=== PATIENT | male | born 1950 | race Caucasian/White ===

== ENCOUNTER 2020-05-16 07:05 | Day surgery (SDC) | payer MEDICARE ==
[~2020-05-16] VITALS: Ht 188 cm; Wt 111.6 kg
[~2020-05-16 07:05] MED LIST: LISINOPRIL-HCT1 EACH PO; NORVASC5 MG PO; ZOCOR40 MG PO
--- NOTE | 2020-05-16 08:35 | NUR ---
05/16/20 0835 Lianna,Adalgisa 8205 PT ARRIVED TO PACU ON 2L VIA MASK, PT DENIES PAIN AND NAUSEA. PT REORIENTED TO PACU. VSS. PT DROWSY.
--- NOTE | 2020-05-17 07:58 | OR ---
[facility] [address], [place] [address] Signed DATE OF OPERATION: 05/16/2020 SURGEON: Masoud Whitt MD PREOPERATIVE DIAGNOSIS: Screening. POSTOPERATIVE DIAGNOSES: 1. Moderate pandiverticulosis. 2. Circumferential moderate external hemorrhoids. PROCEDURE: Colonoscopy without biopsy. ESTIMATED BLOOD LOSS: None. INDICATIONS: Meek is a 69-year-old gentleman, asked to see me for a followup colonoscopy. He has moved up from [place] to be closer to his daughter and grandchildren. He had a negative sigmoidoscopy back in 2007, while living in [place]. He currently has no lower GI complaints. No family history of colon cancer or polyps. I had met with Meek in the office and I gave him a pamphlet on colonoscopy. We discussed the difference between his colonoscopy and the sigmoidoscopy. We also reviewed the written instructions for the bowel prep line by line. He understands endoscopy quite well. He understands there is risk including, but not limited to gas bloating, crampy abdominal pain, bleeding, perforation requiring surgery, and missed diagnosis. He also understands the need to have someone taking home afterwards due to this IV sedation. He had expressed understanding and wished to proceed. PROCEDURE NOTE: Meek was taken into our endoscopy suite and placed in the left lateral decubitus position. He was given a total of 7 mg of Versed and 150 mcg of fentanyl to cover the case. A digital rectal exam was performed and he does have moderate circumferential external hemorrhoids. He had good sphincter tone. Prostate is indurated, consistent with his age. The adult colonoscope was then introduced and advanced under direct visualization of the camera without difficulty. It took some extra sedation and abdominal compression in order to advance the scope down into the cecum. His prep was good. The scope was slowly withdrawn. We took pictures throughout for photodocumentation. We could easily see the appendiceal orifice and the ileocecal Electronically Signed By: MASOUD WHITT MD 05/17/20 [facility]8 PATIENT NAME: MEEK CAMEJO OPERATIVE REPORT DATE OF : 50 REPORT #: [id number] PHYSICIAN: MASOUD WHITT MD PCP: ISRAEL MORELOS MD REPORT IS CONFIDENTIAL AND NOT TO BE RELEASED WITHOUT AUTHORIZATION [facility] [address], [place] [address] Signed valve. We found that he does have pandiverticulosis. They were moderate in size, moderate in number, and scattered throughout the entire colon. The rectum was unremarkable. Upon retroflexion of the scope, we did not see any additional pathology. After this, the gas was suctioned out, colonoscope removed. Meek tolerated the procedure quite well. RECOMMENDATIONS: Meek can follow up in 10 years for repeat colonoscopy. Masoud Whitt MD ALB/KYRAL /[id number] cc: Masoud Whitt MD Chart Filed Incomplete Dr. Israel Morelos Copies: MASOUD WHITT MD CHART FILED INCOMPLETE ~ Electronically Signed By: MASOUD WHITT MD 05/17/20 0758 PATIENT NAME: FLOYDYovanaMEEK GLASS OPERATIVE REPORT DATE OF : 50 REPORT #: [id number] PHYSICIAN: MASOUD WHITT MD PCP: ISRAEL MORELOS MD REPORT IS CONFIDENTIAL AND NOT TO BE RELEASED WITHOUT AUTHORIZATION
== END 2020-05-16 09:05 | disposition home or self-care (01) ==
LOC: DS 07:05 → OPS 07:05 → DS 08:15 → OPS 08:15
PROVIDERS: Colon & Rectal Surgery
PROC: 0DJD8ZZ Inspection of Lower Intestinal Tract, Via Natural or Artificial Opening Endoscopic (ICD-10-PCS; principal; 2020-05-16 08:15)
DX: Z12.11 Encounter for screening for malignant neoplasm of colon (principal); K57.30 Diverticulosis of large intestine without perforation or abscess without bleeding; K64.4 Residual hemorrhoidal skin tags; Z79.899 Other long term (current) drug therapy
CPT/HCPCS: 99153; G0500; J0690; J2250; J3010; J7121